=== PATIENT | female | born 1930 | race Hispanic/Latino ===

== ENCOUNTER 2016-07-30 17:18 | Emergency (ER) | payer MEDICARE ==
[2016-07-30 17:40] VITALS: BP 115/65
[2016-07-30] MEDS ORDERED: PERCOCET 5/325 PO ONE (20:04)
--- NOTE | 2016-07-30 20:29 | Emergency Department Report ---
HPI - General Chief Complaint: Medical Clearance Time Seen by Provider: 07/30/16 20:01 - HPI HPI: Patient is a 85-year-old female presents to the ED with her daughter stating that she was at her family doctor's office earlier today Dr. Jones and was not able to get her pain medication but when she got home and the pain continued and she decided come in and get her pain prescription medication the ER. Patient is recent history of lung cancer and followed by manager acquisition. She denies fevers/chills/nausea/vomiting/shortness of breath or chest pain any other problems. She states she is simply here to get a pain medication for her shoulder pain she denies any fall trauma to the shoulder no bruising. She was told by Dr. Warren that the pain is most likely from the mass in her upper left lung ED Past Medical Hx - Past Medical History Previous Medical History?: Yes Hx Hypertension: Yes Hx Heart Attack/AMI: Yes (1976) Hx Diabetes: Yes Hx GERD: Yes Hx Renal Disease: No Hx of Cancer: Yes (lung) Hx Seizures: No Hx COPD: Yes (MILD; No inhaler use) Hx Tuberculosis: No Hx HIV: No Additional medical history: CAD. ATRIAL FIB - Surgical History Past Surgical History?: Yes Hx Coronary Stent: Yes (1998) Additional Surgical History: ANGIOPLASTY. CATARACT REMOVAL. BLADDER CANCER SURGERY. T&A - Social History Smoking Status: Former Smoker Substance Use Type: Prescribed - Medications Home Medications: Home Medications Medication Instructions Recorded Confirmed Last Taken Type Atenolol [Atenolol] 1 tab PO DAILY 06/27/14 02/20/15 02/20/15 History Famotidine [Famotidine] 1 tab PO DAILY 06/27/14 02/20/15 02/20/15 History Lactase [Lactaid] 1 tab PO PRN PRN 06/27/14 02/20/15 02/20/15 History Latanoprost [Latanoprost] 1 drop OU DAILY 06/27/14 02/20/15 02/20/15 History Levothyroxine Sodium 1 tab PO DAILY 06/27/14 02/20/15 02/20/15 History [Levothyroxine Sodium] Lisinopril [Lisinopril] 1 tab PO DAILY 06/27/14 02/20/15 02/20/15 History Metformin HCl [Metformin HCl] 1 tab PO BID 06/27/14 02/20/15 02/20/15 History NIFEdipine [Nifedipine ER] 1 tab PO DAILY 06/27/14 02/20/15 02/20/15 History Pravastatin Sodium [Pravastatin 1 tab PO DAILY 06/27/14 02/20/15 02/20/15 History Sodium] Vit C/Vit E/Lutein/Min/Hundred-3 1 each PO DAILY 06/27/14 02/20/15 02/20/15 History [Ocuvite Softgel] Warfarin Sodium [Warfarin Sodium] 1 tab PO DAILY 06/27/14 02/20/15 02/20/15 History Levalbuterol 1.25 [Xopenex] 1.25 mg TID PRN 02/21/15 02/21/15 02/20/15 22:00 History Warfarin [Coumadin] 2.5 mg PO DAILY 02/21/15 02/21/15 02/19/15 History 2.5 oxyCODONE /ACETAMINOPHEN [Percocet 1 tab PO Q6H #20 tablet 07/30/16 Unknown Rx 5/325 mg] ED Review of Systems ROS: Stated complaint: SHOULDER PAIN DUE TO CANCER Other details as noted in HPI Constitutional: denies: chills, fever Eyes: denies: eye pain, eye discharge, vision change ENT: denies: ear pain, throat pain Respiratory: denies: cough, shortness of breath, wheezing Cardiovascular: denies: chest pain, palpitations Endocrine: no symptoms reported Gastrointestinal: denies: abdominal pain, nausea, diarrhea Genitourinary: denies: urgency, dysuria, discharge Musculoskeletal: denies: back pain, joint swelling, arthralgia Skin: denies: rash, lesions Neurological: denies: headache, weakness, paresthesias Psychiatric: denies: anxiety, depression Hematological/Lymphatic: denies: easy bleeding, easy bruising Physical Exam - Physical Exam Vital Signs: Vital Signs 07/30/16 17:35 Temperature 97.4 F L Pulse Rate 71 Respiratory 20 Rate Blood Pressure 115/65 O2 Sat by Pulse 96 Oximetry Physical Exam: GENERAL: Alert and oriented x3, no apparent distress, Normal Gait, atraumatic. HEAD: Head is normocephalic and a-traumatic. NOSE: Nose symetrical, Nontender,Nares appeared normal. Oxygen cannula in nose. Breathing normal NECK: Supple. Non edematous, No carotid bruits. No lymphadenopathy or thyromegaly. No C-spine tenderness LUNGS: Symetrical with respiration, No wheezing, no rales or crackles, CTAB. HEART: S1, S2 present, regular rate and rhythm without murmur, no rubs, no gallops. EXTREMITIES/MUSCULOSKELETAL: No cyanosis, clubbing, rash, lesions or edema. Full ROM bilaterally. UE/LE Pulses 2+ bilaterally. Left shoulder joints intact , no bruising, no ecchymosis is noted. Scapular region clear nontender. NEUROLOGIC: The patient is cooperative with no focal neurologic deficits. Cranial nerves II through XII are grossly intact. Normal speech. SKIN: Warm and dry, No lesions, No ulceration or induration present. ED Course Vital Signs 07/30/16 17:35 Temperature 97.4 F L Pulse Rate 71 Respiratory 20 Rate Blood Pressure 115/65 O2 Sat by Pulse 96 Oximetry ED Medical Decision Making - Medical Decision Making 85-year-old female presents with left shoulder pain and medication refill. Patient is alert and oriented times threes in no acute distress. Patient was given Percocet in the ED for pain. Patient reports feeling better. Vital signs are normal. Patient verbalizes understanding instructions given and will follow-up with Dr. Ferrara Critical care attestation.: If time is entered above; I have spent that time in minutes in the direct care of this critically ill patient, excluding procedure time. ED Disposition Clinical Impression: Medication refill Shoulder pain, left Qualifiers: Chronicity: chronic Qualified Code(s): M25.512 - Pain in left shoulder; G89.29 - Other chronic pain Disposition: DISCHARGED TO HOME OR SELFCARE Is pt being admited?: No Does the pt Need Aspirin: No Condition: Stable Instructions: Trigger Point Pain (ED), Heat Pack Application (ED) Additional Instructions: Follow-up with your physician as discussed. If worsen symptoms please return to the ED. Prescriptions: oxyCODONE /ACETAMINOPHEN [Percocet 5/325 mg] 1 tab PO Q6H #20 tablet Forms: Accompanied Note, Work/School Release Form(ED) Time of Disposition: 20:31
== END 2016-07-30 20:35 | disposition home or self-care (01) ==
LOC: ED 17:18
DX: M25.512 Pain in left shoulder (principal); G89.29 Other chronic pain; C34.90 Malignant neoplasm of unspecified part of unspecified bronchus or lung; I10 Essential (primary) hypertension; I25.2 Old myocardial infarction; K21.9 Gastro-esophageal reflux disease without esophagitis; J44.9 Chronic obstructive pulmonary disease, unspecified; I48.91 Unspecified atrial fibrillation; Z95.818 Presence of other cardiac implants and grafts; I25.10 Atherosclerotic heart disease of native coronary artery without angina pectoris; Z87.891 Personal history of nicotine dependence; Z88.0 Allergy status to penicillin
CPT/HCPCS: 99282